=== PATIENT | male | born 1950 | race Two or more races ===

== ENCOUNTER → 2020-03-17 | Outpatient (CLI) | payer MEDICARE, OTHER ==
[~2020-03-17] MED LIST: ASPIR 8181 MG PO; CLARITIN10 MG PO; FLOMAX0.4 MG PO; FLONASE 0.05% N16 GM; LOPRESSOR 25 MG25 MG PO; MACROBID 100 M100 MG PO; PROTONIX40 MG PO; SPIRIVA18 MCG INH; ULTRAM50 MG PO
== END ==
LOC: RAD 14:08
DX: Z08 Encounter for follow-up examination after completed treatment for malignant neoplasm (principal); Z85.118 Personal history of other malignant neoplasm of bronchus and lung; Z98.890 Other specified postprocedural states; J84.9 Interstitial pulmonary disease, unspecified; M95.4 Acquired deformity of chest and rib
CPT/HCPCS: 71046

== ENCOUNTER → 2020-04-13 | Outpatient (CLI) | payer MEDICARE, OTHER | LOC: RT 11:31 | DX: I48.0 Paroxysmal atrial fibrillation (principal); R00.0 Tachycardia, unspecified | CPT/HCPCS: 93005 ==

== ENCOUNTER → 2020-09-22 | Outpatient (CLI) | payer MEDICARE, OTHER | LOC: RAD 11:05 | DX: Z08 Encounter for follow-up examination after completed treatment for malignant neoplasm (principal); Z85.118 Personal history of other malignant neoplasm of bronchus and lung; D64.9 Anemia, unspecified; Z92.89 Personal history of other medical treatment; E86.0 Dehydration; M95.4 Acquired deformity of chest and rib; R91.8 Other nonspecific abnormal finding of lung field | CPT/HCPCS: 71046 ==

== ENCOUNTER → 2020-12-08 | Outpatient (CLI) | payer MEDICARE, OTHER | LOC: KOH-I 14:42 | DX: F17.210 Nicotine dependence, cigarettes, uncomplicated (principal); R91.8 Other nonspecific abnormal finding of lung field | CPT/HCPCS: 71271 ==

== ENCOUNTER → 2021-04-18 | Outpatient (CLI) | payer MEDICARE, OTHER | LOC: CT 12:46 | DX: R91.8 Other nonspecific abnormal finding of lung field (principal); D64.9 Anemia, unspecified; Z92.89 Personal history of other medical treatment; E86.0 Dehydration; M95.4 Acquired deformity of chest and rib | CPT/HCPCS: 71260; Q9967 ==